=== PATIENT | male | born 1970 | race Caucasian/White ===

== ENCOUNTER 2016-06-11 12:40 | Emergency (ER) | payer BC ==
[2016-06-11] MEDS ORDERED: TORADOL IM ONE (17:58)
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
[2016-06-11 19:59] VITALS: BP 123/78
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
== END 2016-06-11 19:56 | disposition home or self-care (01) ==
LOC: ED 12:40
DX: S43.402A Unspecified sprain of left shoulder joint, initial encounter (principal); E78.00 Pure hypercholesterolemia, unspecified; F17.200 Nicotine dependence, unspecified, uncomplicated; V49.49XA Driver injured in collision with other motor vehicles in traffic accident, initial encounter; Y93.9 Activity, unspecified; Y92.9 Unspecified place or not applicable; Y99.9 Unspecified external cause status
CPT/HCPCS: 73030; 96372; 99283; J1885